=== PATIENT | female | born 1965 | race Caucasian/White ===

== ENCOUNTER 2017-05-14 12:37 | Emergency (ER) | payer MEDICAID ==
[~2017-05-14] VITALS: Ht 160 cm; Wt 57.2 kg
[~2017-05-14 12:37] MED LIST: CIPRO500 MG PO; OMEPRAZOLE20 MG PO; PRILOSEC10 MG PO
--- NOTE | 2017-05-14 12:58 | [facility] Report ---
History of Present Issue Date/Time Seen by Provider 05/14/17 1258 Visit Reason Pt arrived:Walked Presenting Problem:PT STATES SORE THROAT, COUGH, SNEEZING, RUNNY NOSE AND R EAR PAIN Location if Accident: Onset of symptoms date/time:/ or onset unknown for:MEDICAL HX UNKNOWN Have you (or family members/close friends) recently traveled outside the [place]? N If Yes, where/when: Have you had exposure to infectious disease within the past month? TB? Other? Specify: Here w/ daughter c/o watery eyes, sneezing, rhinorrhea, nasal congestion 'again' since returning from [place] yesterday. Reports same symptoms 2 weeks ago when she returned from [place]. Hx of allergies. Doesn't take antihistamine "like I should" because they all cause drowsiness in her. tried flonase but was taking at night and waking every morning with headache. Last night sore throat. "somewhat better " today. No fever, aches, chills, cough Source patient Exam Limitations no limitations ALLERGIES Coded Allergies: ibuprofen (05/14/17) History Medical History General CAD? No Angina: No IN: No Hypertension? No Hyperlipidemia? No CHF? No DVT? No PE? No COPD? No Asthma? No Anemia? No GERD? No Gastric ulcers? No GI Bleed? No Hernia? No Thyroid Problems? No Hypothyroidism? No CVA? No Seizures? No Diabetes? No Renal Insuffiency? No UTI? Yes Stones? No BPH? No GB Disease: Yes Nephritic Syndrome? No Asplenia? No Hepatitis? No Sickle Cell Disease? No Arthritis? No Migraines? No Cataracts? No Glaucoma? No MRSA? No HIV? No TB? No Anxiety? No Depression? No Cancer? No Immunization HX DT/Tetanus 1-4 Years Ago Flu 2012-FSN Pneumonia Never Had Surgical Hx Previous Surgery?Y HYSTERECTOMY GALLBLADDER Family History Family HX Diabetes Yes CAD Yes Hypertension Yes Hyperlipidemia Yes Cancer Yes TB Yes Social History Smoking Hx Smoker: Current Every Day Smoker Tobacco: Yes Type Cigarettes Packs/day 2 1/2 - 3 Packs Alcohol Alcohol: No Review of Systems All Other Systems Reviewed and Negative Constitutional see HPI, denies malaise Eyes other (itchy, no redness), denies inflammation, denies pain ENT see HPI. denies: ear pain, ear discharge, throat swelling. Respiratory see HPI Gastrointestinal denies no symptoms reported Musculoskeletal denies other (aches) Skin denies rash Psychiatric/Neurological denies headache Physical Exam Vital Signs Vital Signs Date Time Temp Pulse Resp B/P Pulse O2 O2 Flow FiO2 Ox Delivery Rate 05/14 1355 98.6 81 20 148/60 99 05/14 1255 98.6 81 20 148/60 99 General Appearance normal appearance, no apparent distress Eye Exam - bilateral eye normal exam Ear, Nose, Throat normal ENT inspection (x/ boggy turbinates) Neck non-tender, supple Respiratory Status No: respiratory distress, productive cough, non productive cough. Lung Sounds anterior: lungs clear. posterior: lungs clear. bilateral: lungs clear. Cardiovascular regular rate/rhythm, no peripheral edema, no murmur Neurologic alert, oriented x 3 Mental status normal mood/affect Skin normal color, warm/dry Lymphatic no adenopathy Medical Decision Making LABS/Meds/Orders Pt receiving controlled substance in ED? No Results/Orders Laboratory Tests 05/14/17 1256: Group A Strep Screen NOT DETECTED Orders Procedure Date/time Status [facility] STREP SCREEN 05/14 1258 Complete Departure Departure Time of Disposition 1350 Disposition DC Home or Self Care(routine) Clinical Impression Primary Impression: Allergic rhinitis Qualifiers: Chronicity: acute Allergic rhinitis trigger: unspecified Allergic rhinitis seasonality: seasonal Qualified Code: J30.2 - Other seasonal allergic rhinitis Condition STABLE Referrals [facility] Keep new pt appt for to establish primary care. Patient Instructions DI for Allergic Rhinitis Additional Instructions * Monitor Temp. FU if fever develops * Encourage fluids, water, gatorade, powerade, pedialyte if /toddler/child * warm salt water gargles * warm fluids * sore throat lozenges * sleep elevated * humidifier/vaporizer * flonase 1-2 sprays each nostril daily but may take 2-3 days to notice improvement with it. * Start back claritin daily * Start steroid today. Follow directions on package. Rvwd side effects. Pt reports they have taken them before. Discharge Counseling Counseled pt/family regarding diagnosis, medications/RX, home care, follow up needs Prescriptions Current Visit Scripts Prednisone (Prednisone 20MG) 20 MG PO DAILY #5 TAB at 1656
[2017-05-14] MEDS ORDERED: PREDNISONE 20MG20 MG PO (13:53)
[2017-05-14 13:55] VITALS: BP 148/60
== END 2017-05-14 13:56 | disposition home or self-care (01) ==
LOC: UTC 12:37
DX: J30.2 Other seasonal allergic rhinitis (principal); F17.210 Nicotine dependence, cigarettes, uncomplicated; Z77.22 Contact with and (suspected) exposure to environmental tobacco smoke (acute) (chronic)